=== PATIENT | male | born 1965 | race Caucasian/White ===

== ENCOUNTER 2020-07-11 13:44 | Emergency (ER) | payer BC, OTHER ==
--- NOTE | 2020-07-11 16:21 | EDPHYS ---
Physician Documentation [facility] Name: Gregorio Ernst Age: 55 yrs Sex: Male : 1965 Arrival Date: 07/11/2020 Time: 13:48 Bed 27 Private MD: Last Bell HPI: 07/11 16:15 This 55 yrs old Male presents to ER via Ambulatory with complaints of Low jmm Back Pain, gluteal injury. 16:15 The patient presents with pain that is acute. Onset: The symptoms/episode jmm began/occurred acutely, 3 day(s) ago. Modifying factors: The patient symptoms are alleviated by nothing, the patient symptoms are aggravated by any movement. Associated signs and symptoms: Pertinent negatives: abdominal pain, hematuria, incontinence, numbness, tingling, urinary retention, weakness. This is a 55 year old male with a history of DVT, PE that presents to the ED with complaints of left gluteal pain after over extending his left leg 3 days ago. Denies fall, or direct impact. Pain does not radiate down the leg. . Historical: - Allergies: 14:40 No Known Allergies; ca1 - Home Meds: 14:40 Coumadin 10 mg Oral tab 1 tab once daily [Active]; ca1 - PMHx: 14:40 PE; Multiple blood clots; ca1 - PSHx: 14:40 blood clot surgeries; ca1 - Immunization history:: Flu vaccine is not up to date. - Social history:: Smoking status: Patient reports the use of cigarette tobacco products, smokes one-half pack cigarettes per day. ROS: 16:15 Constitutional: Negative for fever, chills, and weight loss, Cardiovascular: Negative jmm for chest pain, palpitations, and edema, Respiratory: Negative for shortness of breath, cough, wheezing, and pleuritic chest pain. 16:15 MS/extremity: Positive for pain. 16:15 All other systems are negative. Exam: 16:15 Constitutional: This is a well developed, well nourished patient who is awake, alert, jmm and in no acute distress. Head/Face: atraumatic. Eyes: EOMI, no conjunctival erythema appreciated ENT: Moist Mucus Membranes Neck: Trachea midline, Supple Chest/axilla: Normal chest wall appearance and motion. Cardiovascular: Regular rate and rhythm. No edema appreciated Respiratory: Normal respirations, no respiratory distress appreciated Abdomen/GI: Non distended, soft Back: Normal ROM Skin: General appearance color normal 16:15 Musculoskeletal/extremity: left gluteal pain on palpation, compartments are soft, full dorsalis pulse, NVI. 16:15 Skin: Appearance: Color: normal in color. 16:15 Neuro: Orientation: is normal, Mentation: is normal, Memory: is normal. 16:15 Psych: Behavior/mood is pleasant, cooperative. Vital Signs: 14:36 BP 141 / 80; Pulse 88; Resp 16 S; Temp 97.8; Pulse Ox 99% on R/A; Weight 88.45 kg (R); ca1 Height 6 ft. 1 in. (185.42 cm) (R); Pain 7/10; 14:36 Body Mass Index 25.73 (88.45 kg, 185.42 cm) ca1 MDM: 16:13 Patient medically screened. dany 16:19 Data reviewed: vital signs, nurses notes. Counseling: I had a detailed discussion with vaughn the patient and/or guardian regarding: the historical points, exam findings, and any diagnostic results supporting the discharge/admit diagnosis, the need for outpatient follow up, to return to the emergency department if symptoms worsen or persist or if there are any questions or concerns that arise at home. ED course: Patient is alert and non toxic in appearance in the ED. Compartments soft, afebrile, advised to follow up with pcp or ortho for further evaluation. patient understood and agrees with the plan of care.. Administered Medications: No medications were administered Disposition: 07/11/20 16:21 Discharged to Home. Impression: Strain of other muscles and tendons at lower leg level. - Condition is Stable. - Discharge Instructions: Gluteal Strain. - Prescriptions for orphenadrine citrate 100 mg Oral Tablet Sustained Release - take 1 tablet by ORAL route 2 times per day As needed; 20 tablet. Prednisone 20 mg Oral Tablet - take 3 tablet by ORAL route once daily for 5 days; 15 tablet. - Medication Reconciliation Form, Thank You Letter, Antibiotic Education, Prescription Opioid Use, Work release form form. - Follow up: Private Physician; When: 2 - 3 days; Reason: Recheck today's complaints, Continuance of care, Re-evaluation by your physician. Follow up: Tin Lucero MD; When: 2 - 3 days; Reason: Recheck today's complaints, Continuance of care, Re-evaluation by your physician. Addendum: 07/13/2020 06:49 Co-signature as Attending Physician, Last Macedo MD I agree with the assessment and c villagomez plan of care. Signatures: Last Macedo MD MD cha Mickail, Joel, PA PA [facility] Rachel Pedroza RN RN iw Rhiannon Gross RN RN ca1 Corrections: (The following items were deleted from the chart) 07/11 16:22 16:21 07/11/2020 16:21 Discharged to Home. Impression: Strain of other muscles and jmm tendons at lower leg level. Condition is Stable. Forms are Medication Reconciliation Form, Thank You Letter, Antibiotic Education, Prescription Opioid Use. Follow up: Private Physician; When: 2 - 3 days; Reason: Recheck today's complaints, Continuance of care, Re-evaluation by your physician. [facility] 16:34 16:22 07/11/2020 16:21 Discharged to Home. Impression: Strain of other muscles and iw tendons at lower leg level. Condition is Stable. Discharge Instructions: Gluteal Strain. Prescriptions for orphenadrine citrate 100 mg Oral Tablet Sustained Release - take 1 tablet by ORAL route 2 times per day As needed; 20 tablet. and Forms are Medication Reconciliation Form, Thank You Letter, Antibiotic Education, Prescription Opioid Use. Follow up: Private Physician; When: 2 - 3 days; Reason: Recheck today's complaints, Continuance of care, Re-evaluation by your physician. Follow up: Dr. Tin Lucero; When: 2 - 3 days; Reason: Recheck today's complaints, Continuance of care, Re-evaluation by your physician. m
--- NOTE | 2020-07-11 16:21 | ER ---
Nurse's Notes [facility] Name: Gregorio Ernst Age: 55 yrs Sex: Male : 1965 Arrival Date: 07/11/2020 Time: 13:48 Bed 27 Private MD: Diagnosis: Strain of other muscles and tendons at lower leg level Presentation: 07/11 14:36 Chief complaint: Patient states: Started Saturday07/08/2020. Was climbing up a truck then ca1 stretched and I felt like I tore my L gluteal muscle. Been having pain since then. Coronavirus screen: Client denies travel out of the [place] in the last 14 days. At this time, the client does not indicate any symptoms associated with coronavirus-19. Ebola Screen: Patient negative for fever greater than or equal to 101.5 degrees Fahrenheit, and additional compatible Ebola Virus Disease symptoms Patient denies exposure to infectious person. Patient denies travel to an Ebola-affected area in the 21 days before illness onset. No symptoms or risks identified at this time. Initial Sepsis Screen: Does the patient meet any 2 criteria? No. Patient's initial sepsis screen is negative. Does the patient have a suspected source of infection? No. Patient's initial sepsis screen is negative. Risk Assessment: Do you want to hurt yourself or someone else? Patient reports no desire to harm self or others. Onset of symptoms was July 08, 2020. 14:36 Method Of Arrival: Ambulatory ca1 14:36 Acuity: EVAN 4 ca1 Triage Assessment: 16:30 General: Appears in no apparent distress. Behavior is calm, cooperative. iw Historical: - Allergies: 14:40 No Known Allergies; ca1 - Home Meds: 14:40 Coumadin 10 mg Oral tab 1 tab once daily [Active]; ca1 - PMHx: 14:40 PE; Multiple blood clots; ca1 - PSHx: 14:40 blood clot surgeries; ca1 - Immunization history:: Flu vaccine is not up to date. - Social history:: Smoking status: Patient reports the use of cigarette tobacco products, smokes one-half pack cigarettes per day. Screenin:33 Abuse screen: Denies threats or abuse. Denies injuries from another. Nutritional iw screening: No deficits noted. Tuberculosis screening: No symptoms or risk factors identified. Fall Risk None identified. Assessment: 16:00 General: Appears in no apparent distress. Behavior is calm, cooperative. Pain: iw Complains of pain in left gluteal fold and left hamstring. Neuro: Level of Consciousness is awake, alert, obeys commands, Oriented to person, place, time, situation, Moves all extremities. Cardiovascular: Patient's skin is warm and dry. Respiratory: Respiratory effort is even, unlabored, Respiratory pattern is regular, symmetrical. Derm: Skin is intact, is healthy with good turgor. Musculoskeletal: Range of motion: intact in all extremities. Vital Signs: 14:36 BP 141 / 80; Pulse 88; Resp 16 S; Temp 97.8; Pulse Ox 99% on R/A; Weight 88.45 kg (R); ca1 Height 6 ft. 1 in. (185.42 cm) (R); Pain 7/10; 14:36 Body Mass Index 25.73 (88.45 kg, 185.42 cm) ca1 ED Course: 13:48 Patient arrived in ED. am2 14:39 Triage completed. ca1 14:40 Arm band placed on right wrist. ca1 15:49 Rachel Pedroza, RN is Primary Nurse. iw 15:51 Moiz Rai PA is PHCP. jmm 15:51 Last Macedo MD is Attending Physician. [facility] 16:00 Patient has correct armband on for positive identification. iw 16:22 Tin Lucero MD is Referral Physician. [facility] 16:33 No provider procedures requiring assistance completed. Patient did not have IV access iw during this emergency room visit. Administered Medications: No medications were administered Outcome: 16:21 Discharge ordered by . [facility] 16:33 Discharged to home ambulatory. iw 16:33 Condition: good 16:33 Discharge instructions given to patient, Instructed on discharge instructions, follow up and referral plans. medication usage, Demonstrated understanding of instructions, follow-up care, medications, Prescriptions given X 2. 16:34 Patient left the ED. iw Signatures: Moiz Rai PA PA jmm Williams, Irene, MATT GUTIERREZ iw Lamar Altamirano am2 Rhiannon Gross RN RN ca1
[2020-07-11 16:38] VITALS: BP 141/80; TEMP 97.8; O2SAT 99
== END 2020-07-11 16:34 | disposition home or self-care (01) ==
LOC: ER 13:44
DX: S86.812A Strain of other muscle(s) and tendon(s) at lower leg level, left leg, initial encounter (principal); Z86.711 Personal history of pulmonary embolism; Z79.01 Long term (current) use of anticoagulants; F17.210 Nicotine dependence, cigarettes, uncomplicated
CPT/HCPCS: 99282